=== PATIENT | female | born 1930 | race Caucasian/White ===

== ENCOUNTER 2018-08-08 14:20 | Emergency (ER) | payer MEDICARE ==
[2018-08-08] MEDS ORDERED: Acetaminophen 500 MG TAB ONE (15:08)
--- NOTE | 2018-08-08 15:30 | RAD ---
AP CHEST: History: Trauma. Fall. Back pain. Arm pain. FINDINGS: AP chest was obtained. Calcifications of the aortic arch seen. Surgical clips seen in the gallbladder fossa. Left shoulder arthritic changes seen. No evidence of acute fracture, subluxation, or bony lesions. IMPRESSION: No evidence of acute intrathoracic abnormality seen. POS: [facility]
--- NOTE | 2018-08-08 15:49 | RAD ---
RIGHT SHOULDER THREE VIEWS: INDICATIONS: Fall with injury and pain. FINDINGS: There is no fracture identified. There is a high-riding right humeral head with narrowing of the sub acromial space, indicating chronic rotator cuff insufficiency. 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 IMPRESSION: Chronic findings of the right shoulder without fracture evident. POS: [facility]
--- NOTE | 2018-08-08 15:49 | RAD ---
AP PELVIS: History: Fall, injury to pelvis and hips. FINDINGS: Bony pelvis appears intact. SI joints appear symmetric. Sacrum appears intact. Both hips appear intac t. There are mild symmetric degenerative changes at both hips. IMPRESSION: NO evidence of acute fracture. POS: [facility]
--- NOTE | 2018-08-08 15:50 | RAD ---
THORACIC SPINE THREE VIEWS: INDICATIONS: Fall with pain and injury. Trauma. FINDINGS: Incidental note of degenerative change of the cervical spine. There is a moderate compression fractu re with anterior wedging involving the T11 segment. Multilevel degenerative changes of the thoracic spine are present. There is kyphosis. IMPRESSION: Moderate anterior wedge compression fracture of T11. POS: [facility]
== END 2018-08-08 17:09 | disposition home or self-care (01) ==
LOC: ERS 14:20
DX: S22.089A Unspecified fracture of T11-T12 vertebra, initial encounter for closed fracture (principal); I10 Essential (primary) hypertension; Z79.899 Other long term (current) drug therapy; W19.XXXA Unspecified fall, initial encounter
CPT/HCPCS: 71045; 72072; 72170

== ENCOUNTER 2018-09-18 09:00 | Outpatient (CLI) | payer MEDICARE ==
--- NOTE | 2018-09-18 10:01 | RAD ---
THORACIC SPINE THREE VIEWS: Indications: Recent fall with back pain. Comparison: 08-08-18 FINDINGS: There is a new compression deformity involving the T9 vertebra which has occurred since 08-08-18 exam. There is severe compression vertebra which has occurred in the interim with loss of central and anter ior height of over 50%. Posterior alignment is preserved and there is no significant retropulsion moriah arent. The compression deformity at T12 appears stable in appearance. Other thoracic vertebrae maintain height. In the AP projection there is a scoliotic curvature with convexity to the left which is more pronounc ed when compared to the AP view of 08-08-18. Alvo is at the T12 level. IMPRESSION: 1. New compression deformity at T9 when compared to recent exam. 2. The compression deformity at T12 appears stable. 3. Increase in the scoliotic curvature in the AP projection when compared to recent exam. POS: [facility]
== END 2018-09-18 09:01 | disposition home or self-care (01) ==
LOC: TBSIIMAG 09:00
PROVIDERS: ATTEND Neurological Surgery
DX: S22.008A Other fracture of unspecified thoracic vertebra, initial encounter for closed fracture (principal); M41.9 Scoliosis, unspecified
CPT/HCPCS: 72070

== ENCOUNTER 2018-09-26 14:12 | Outpatient (CLI) | payer MEDICARE ==
--- NOTE | 2018-09-26 16:21 | BD ---
DEXA BONE DENSITY SCAN: 09/26/2018 HISTORY: Postmenopausal female, undergoing screening for osteoporosis. COMPARISON: None available. FINDINGS: BMD T-SCORE LEFT FEMORAL NECK 0.700 -1.3 PROXIMAL LEFT FEMUR 0.895 -0.4 RIGHT FEMORAL NECK 0.582 -2.4 TOTAL PROXIMAL RIGHT FEMUR: 0.775 -1.4 The FRAX-WHO fracture risk assessment tool reports a 10-year fracture risk in an treated patient at 1 2% to 17% for a major osteoporotic fracture and 3.1% to 5.7% for a hip fracture. IMPRESSION: Osteopenia within the bilateral femoral necks, right greater than left, correlating with a moderately increased risk for fracture. POS: [facility]
== END 2018-09-26 14:13 | disposition home or self-care (01) ==
LOC: BICMAMMO 14:12
PROVIDERS: ATTEND Family Medicine
DX: M80.00XD Age-related osteoporosis with current pathological fracture, unspecified site, subsequent encounter for fracture with routine healing (principal); M85.851 Other specified disorders of bone density and structure, right thigh; M85.852 Other specified disorders of bone density and structure, left thigh
CPT/HCPCS: 77080

== ENCOUNTER 2021-02-10 09:15 | Outpatient (CLI) | payer MEDICARE | END 2021-02-10 09:16 | disposition home or self-care (01) | LOC: BICRAD 09:15 | PROVIDERS: ATTEND Family Medicine | DX: R06.00 Dyspnea, unspecified (principal) | CPT/HCPCS: 71046 ==

== ENCOUNTER 2021-05-11 19:15 | Emergency (ER) | payer OTHER, MEDICARE | END 2021-05-11 22:15 | disposition home or self-care (01) | LOC: ERS 19:15 | DX: S40.011A Contusion of right shoulder, initial encounter (principal); S00.83XA Contusion of other part of head, initial encounter; S20.219A Contusion of unspecified front wall of thorax, initial encounter; W01.198A Fall on same level from slipping, tripping and stumbling with subsequent striking against other object, initial encounter; Y93.01 Activity, walking, marching and hiking; Z79.899 Other long term (current) drug therapy | CPT/HCPCS: 70450; 70486; 71045; 93005 ==

== ENCOUNTER 2022-06-29 10:41 | Outpatient (CLI) | payer MEDICARE | END 2022-06-29 10:42 | disposition home or self-care (01) | LOC: BICCT 10:41 | PROVIDERS: ATTEND Family Medicine | DX: G45.3 Amaurosis fugax (principal); I65.23 Occlusion and stenosis of bilateral carotid arteries; I67.2 Cerebral atherosclerosis; I70.0 Atherosclerosis of aorta; I70.8 Atherosclerosis of other arteries | CPT/HCPCS: 70498; 82565 ==